=== PATIENT | male | born 1985 | race Two or more races ===

== ENCOUNTER 2024-07-18 10:24 | Emergency (ER) | payer OTHER ==
[~2024-07-18] VITALS: Ht 177.8 cm; Wt 81.6 kg
[2024-07-18] MEDS ORDERED: TYLENOL ARTHRI650 MG PO (11:00)
[2024-07-18] MEDS ORDERED: KETOROLAC TROMETHAMINE 15 MG VIAL IV STA (11:08)
[2024-07-18] MEDS ORDERED: ORPHENADRINE CITRATE 30 MG/ML AMPUL IV STA (11:09)
[2024-07-18] MEDS ORDERED: METHYLPREDNISOLONE SOD SUCC 40 MG VIAL IV STA (11:10)
[2024-07-18] MEDS ORDERED: CELEBREX200MG PO (14:10)
[2024-07-18] MEDS ORDERED: METAXALONE800 MG PO (14:10)
[2024-07-18] MEDS ORDERED: MEDROLPACK PO (14:10)
== END 2024-07-18 14:27 | disposition home or self-care (01) ==
LOC: ER 10:24 → EMR PED 10:29 → ER 14:27
DX: S39.012A Strain of muscle, fascia and tendon of lower back, initial encounter (principal); X58.XXXA Exposure to other specified factors, initial encounter; Y93.89 Activity, other specified; Y92.89 Other specified places as the place of occurrence of the external cause; Y99.8 Other external cause status; M51.369 Other intervertebral disc degeneration, lumbar region without mention of lumbar back pain or lower extremity pain
CPT/HCPCS: 72100; 96365; 99283; J1885; J2360